=== PATIENT | female | born 1985 | race Caucasian/White ===

== ENCOUNTER 2018-03-11 21:49 | Emergency (ER) | payer SELFPAY ==
--- NOTE | 2018-03-11 22:00 | NUR ---
PATIENT LEFT WITHOUT BEING TRIAGED.
== END 2018-03-11 22:26 | disposition left against medical advice (07) ==
LOC: ER 21:56
DX: Z53.21 Procedure and treatment not carried out due to patient leaving prior to being seen by health care provider (principal)